=== PATIENT | female | born 1960 | race Two or more races ===

== ENCOUNTER 2019-01-05 16:27 | Emergency (ER) | payer OTHER ==
[~2019-01-05] VITALS: Ht 157.5 cm; Wt 95.7 kg
[2019-01-05 17:46] LABS: Basophils # (auto) 0 uL; Basophils % (auto) 0.2 % (0.0-2.0); Eosinophils # (auto) 0.1 uL; Eosinophils % (auto) 0.7 % (0.0-7.0); Hematocrit 44.4 % (36.0-46.0); Hemoglobin 14.7 g/dL (12.2-16.2); Lymphocytes # (auto) 2.1 uL; Lymphocytes % (auto) 14.1 % (10.0-50.0); Mean Corpuscular Hgb Conc. 33.2 g/dL (32.0-36.0); Mean Corpuscular Volume 93.3 fL (80.0-100.0); Monocytes # (auto) 0.9 uL; Monocytes % (auto) 5.9 % (0.0-12.0); Neutrophils # (auto) 12.1 uL; Neutrophils % (auto) 79.1 % (37.0-80.0); Platelet Count (auto) 298 10^3/uL (140-450); Red Blood Cells 4.76 10^6/uL (4.0-5.20); Red Cell Distribution Width 13.5 % (11.8-14.3); White Blood Cell 15.2 10^3/uL (4.4-10.8)
[2019-01-05 18:02] LABS: Albumin 3.9 g/dL (3.4-5.0); Anion Gap 5 (5-15); BUN/Creatinine Ratio 17.7; Blood Urea Nitrogen 11 mg/dL (7-18); Calcium 8.9 mg/dL (8.5-10.1); Carbon Dioxide 27 mmol/L (21-32); Chloride 108 mmol/L (98-107); GFR African American 126 mL/min; GFR Non-African American 104 mL/min; Glucose 105 mg/dL (74-106); Potassium 3.9 mmol/L (3.5-5.1); Sodium 140 mmol/L (136-145)
[2019-01-05 18:07] LABS: Alanine Aminotransferase 22 U/L (13-56); Alkaline Phosphatase 107 U/L (45-117); Aspartate Aminotransferase 15 U/L (15-37); Bilirubin, Total 0.8 mg/dL (0.2-1.0); Total Protein 8.1 g/dL (6.4-8.2)
[2019-01-05 18:39] LABS: Urine Bacteria FEW /hpf (None Seen); Urine Blood TRACE /uL (Negative); Urine Mucus FEW (None Seen); Urine Specific Gravity 1.015 (1.001-1.035); Urine WBC 2 /hpf (0 - 5)
[2019-01-05 19:40] VITALS: BP 149/92
== END 2019-01-05 19:52 | disposition home or self-care (01) ==
LOC: ER 16:39
DX: R07.89 Other chest pain (principal); J40 Bronchitis, not specified as acute or chronic; I10 Essential (primary) hypertension; J45.909 Unspecified asthma, uncomplicated; Z88.6 Allergy status to analgesic agent
CPT/HCPCS: 36415; 70450; 71045; 80053; 81001; 84484; 85025; 93005